=== PATIENT | female | born 1955 | race Caucasian/White ===

== ENCOUNTER 2023-11-28 12:28 | Emergency (ER) | payer OTHER | END 2023-11-28 14:09 | disposition home or self-care (01) | LOC: ERS 12:28 | DX: S02.631A Fracture of coronoid process of right mandible, initial encounter for closed fracture (principal); S05.12XA Contusion of eyeball and orbital tissues, left eye, initial encounter; S05.11XA Contusion of eyeball and orbital tissues, right eye, initial encounter; M19.90 Unspecified osteoarthritis, unspecified site; I10 Essential (primary) hypertension; F17.210 Nicotine dependence, cigarettes, uncomplicated; W01.198A Fall on same level from slipping, tripping and stumbling with subsequent striking against other object, initial encounter | CPT/HCPCS: 70450; 70486 ==

== ENCOUNTER 2024-09-13 11:00 | Outpatient (CLI) | payer OTHER | END 2024-09-13 11:01 | disposition home or self-care (01) | LOC: PET 11:00 | PROVIDERS: ATTEND Internal Medicine | DX: R91.8 Other nonspecific abnormal finding of lung field (principal); K44.9 Diaphragmatic hernia without obstruction or gangrene; J98.4 Other disorders of lung | CPT/HCPCS: 78815; A9552 ==

== ENCOUNTER 2025-06-05 10:15 | Outpatient (CLI) | payer OTHER | END 2025-06-05 10:16 | disposition home or self-care (01) | LOC: PET 10:15 | PROVIDERS: ATTEND Radiology Radiation Oncology | DX: C34.11 Malignant neoplasm of upper lobe, right bronchus or lung (principal); R91.8 Other nonspecific abnormal finding of lung field; K44.9 Diaphragmatic hernia without obstruction or gangrene; K22.9 Disease of esophagus, unspecified | CPT/HCPCS: 78815; A9552 ==

== ENCOUNTER 2025-07-22 11:00 | Inpatient (IN) | payer OTHER ==
[2025-07-23] MEDS ORDERED: Glycopyrrolate 0.2 MG/ML 5 ML SYRINGE ONE (06:43)
[2025-07-23] MEDS ORDERED: fentaNYL PF 100 MCG/2 ML SYRINGE ONE (06:43)
[2025-07-23] MEDS ORDERED: PROPOFOL 20 ML ONE (06:43)
[2025-07-23] MEDS ORDERED: Heparin 5,000 UNITS/ML VIAL ONE (06:53)
[2025-07-23] MEDS ORDERED: CEFAZOLIN 2 GM VIAL ONE (07:59)
[2025-07-23] MEDS ORDERED: Rocuronium Bromide 10 MG/ML (10ML VIAL) ONE (08:16)
[2025-07-23] MEDS ORDERED: SUGAMMADEX SODIUM 200 MG/2 ML VIAL ONE (09:06)
[2025-07-23] MEDS ORDERED: Ondansetron PF 4 MG/2 ML Vial IVP PRN (09:39)
[2025-07-23] MEDS ORDERED: hydrALAZINE 20 MG/ML VIAL SLOW IVP PRN (09:39)
[2025-07-23] MEDS ORDERED: Acetaminophen 325 MG TAB PO PRN (09:39)
[2025-07-23] MEDS ORDERED: Nitroglycerin 50 MG/250 ML BOT 250 ML IVPB PRN (09:39)
[2025-07-23] MEDS ORDERED: Albuterol 200 PUFF (6.7GM INHALER) INH SCH (09:39)
[2025-07-23] MEDS ORDERED: Phenylephrine 40 MG/NS 250 ML 250 ML IVPB PRN (09:39)
[2025-07-23 11:07] VITALS: BMI 21.0
[2025-07-23] MEDS: FLU (Fluad Triv) 25-26 (65UP)PF 45 MCG/0.5 ML Syringe IM ONE (12:53)
[2025-07-23] MEDS ORDERED: Ipratropium Bromide 2.5 ml Neb NEB SCH (13:00)
[2025-07-23] MEDS ORDERED: Non-Formulary Item 1 EACH (Buspirone Hcl [Buspar] 15 MG Tab) PO SCH (15:00)
[2025-07-23] MEDS: Bupropion 150 MG SR.TAB PO SCH (23:19)
[2025-07-24] MEDS: Aspirin 81 mg Enteric Coated Tablet PO SCH (07:53)
[2025-07-24 07:56] VITALS: TEMP 98.8
[2025-07-24] MEDS ORDERED: LEVOTHYROXINE SODIUM 88 MCG PO SCH (09:00)
[2025-07-24] MEDS ORDERED: Non-Formulary Item 1 EACH (Umeclidinium Bromide [Incruse Ellipta] 62.5 MCG Blst.W.Dev) INH SCH (09:00)
[2025-07-24] MEDS ORDERED: Non-Formulary Item 1 EACH (Fluoxetine Hcl [Fluoxetine Hcl] 60 MG Tablet) PO SCH (09:00)
== END 2025-07-24 10:00 | disposition home or self-care (01) | DRG 36 ==
LOC: SURG A 07-23 05:50 → CCU 07-23 10:54
PROVIDERS: ADMIT Thoracic Surgery (Cardiothoracic Vascular Surgery); ATTEND Thoracic Surgery (Cardiothoracic Vascular Surgery)
PROC: 037H34Z Dilation of Right Common Carotid Artery with Drug-eluting Intraluminal Device, Percutaneous Approach (ICD-10-PCS; principal; 2025-07-23)
DX: I65.21 Occlusion and stenosis of right carotid artery (principal); Z79.52 Long term (current) use of systemic steroids; Z79.82 Long term (current) use of aspirin; Z79.899 Other long term (current) drug therapy; Z79.890 Hormone replacement therapy
CPT/HCPCS: 94640; C1725; C1769; C1876; C1884; J0169; J0665; J1642; J1644; J2704; J3010; J7030